=== PATIENT | male | born 1950 | race Caucasian/White ===

== ENCOUNTER → 2020-08-06 | Outpatient (CLI) | payer MEDICARE, OTHER ==
--- NOTE | 2020-08-06 16:54 | RAD ---
History: Reason: NON HEALING WOUND RT HEEL / Spl. Instructions: / History: Technique: Ultrasound was utilized to calculate an ankle brachial index. Findings: Right: Right brachial pressure 140 mmHg Right ankle pressure 146 mmHg Right ankle STELLA 1.0 Impression: The right ankle-brachial index is 1.0 which is within normal limits. Electronically signed by: Franklin Gomez MD (08/06/2020 4:51 PM) [id number]
--- NOTE | 2020-08-06 17:09 | RAD ---
DUPLEX LOWER EX ARTERIAL RIGHT 08/06/2020 3:30 PM INDICATION: Nonhealing wound of the right heel COMPARISON: None available. TECHNIQUE: Sonographic evaluation of the right lower extremity arterial system was performed utilizing grayscale, color Doppler and spectral waveform analysis. FINDINGS: Triphasic waveforms identified throughout the right lower extremity with exception of monophasic waveform involving the anterior tibial artery and dorsalis pedis artery. Peroneal artery is not visualized. Common femoral artery: 193 cm/s Profunda artery: 73 cm/s Superficial femoral artery, proximal: 111 cm/s Superficial femoral artery, mid: 149 cm/s Superficial femoral artery, distal: 151 cm/s Popliteal artery: 9 5 cm/s Posterior tibial artery: 92-98 cm/s Anterior tibial artery: 47 cm/s Peroneal artery: Not visualized Dorsalis pedis artery: 23 cm/s IMPRESSION: There may be mild peripheral arterial disease involving the right lower extremity predominantly involving the right leg at the level of the anterior tibial artery and dorsalis pedis artery. Peroneal artery is not definitively visualized. No hemodynamically significant stenosis involving the right common femoral artery through popliteal artery and posterior tibial artery. Electronically signed by: Michelle Welsh MD (08/06/2020 5:06 PM) [facility]
== END ==
LOC: US 15:26
PROVIDERS: ATTEND Emergency Medicine Undersea and Hyperbaric Medicine
DX: E11.621 Type 2 diabetes mellitus with foot ulcer (principal); L97.412 Non-pressure chronic ulcer of right heel and midfoot with fat layer exposed; I10 Essential (primary) hypertension; E03.9 Hypothyroidism, unspecified; E78.00 Pure hypercholesterolemia, unspecified; Z87.891 Personal history of nicotine dependence
CPT/HCPCS: 93922; 93926